=== PATIENT | male | born 2000 | race Caucasian/White ===

== ENCOUNTER 2021-04-01 16:09 | Emergency (ER) | payer OTHER ==
[2021-04-01 17:04] LABS: HEMOGLOBIN 16.8 gm/dl (14.0-17.5); RED BLOOD COUNT 5.56 M/UL (4.20-5.50); WHITE BLOOD COUNT 13.6 K/UL (4.5-11.0)
[2021-04-01 17:31] LABS: BUN/CREATININE RATIO 11 (0-10)
[2021-04-01] MEDS ORDERED: IBUPROFEN600 MG PO (18:27)
== END 2021-04-01 18:46 | disposition home or self-care (01) ==
LOC: ER1 16:09
PROVIDERS: Family Medicine
DX: S46.911A Strain of unspecified muscle, fascia and tendon at shoulder and upper arm level, right arm, initial encounter (principal); F17.290 Nicotine dependence, other tobacco product, uncomplicated; V49.9XXA Car occupant (driver) (passenger) injured in unspecified traffic accident, initial encounter; Y99.9 Unspecified external cause status
CPT/HCPCS: 71046; 73030; 80053; 81001; 85025; 99284